=== PATIENT | female | born 1945 | race Hispanic/Latino ===

== ENCOUNTER 2023-09-08 14:43 | Inpatient (IN) | payer OTHER ==
[~2023-09-08] VITALS: Ht 162.6 cm; Wt 63.5 kg
[2023-09-08] MEDS ORDERED: ONDANSETRON 4MG INJ ONE (15:19)
[2023-09-08] MEDS ORDERED: MORPHINE 4 MG SYG ONE (15:20)
[2023-09-08] MEDS ORDERED: MORPHINE 2 MG SYG IVP ONE (15:30)
[2023-09-08] MEDS ORDERED: 0.9%NACL 1000ML 1,000 ML IV ONE (17:00)
[2023-09-08 17:29] LABS: BASOPHILS # (AUTO) 0.05 K/uL (0.00-0.20); BASOPHILS % (AUTO) 0.4 % (0.0-5.0); EOSINOPHILS # (AUTO) 0.05 K/uL (0.00-0.70); EOSINOPHILS % (AUTO) 0.4 % (0.0-8.0); HEMATOCRIT 30.9 % (36-48); IMMATURE GRANULOCYTE ABSOLUTE 0.05 K/uL (0-1); LYMPHOCYTES # (AUTO) 1.4 K/uL (1.0-4.8); LYMPHOCYTES % (AUTO) 11.1 % (21.0-51.0); MEAN CORPUSCULAR VOLUME 94.5 fL (79-99); MONOCYTES # (AUTO) 0.5 K/uL (0.1-1.0); MONOCYTES % (AUTO) 3.8 % (3.0-13.0); NEUTROPHILS # (AUTO) 10.8 K/uL (1.8-7.7); NEUTROPHILS % (AUTO) 83.9 % (40.0-77.0); PLATELET COUNT (AUTO) 175 K/uL (130-400); RED BLOOD CELL COUNT(AUTO) 3.27 MIL/uL (4.00-5.50); RED CELL DISTRIBUTION WIDTH 12.6 % (11.0-15.5); WHITE BLOOD COUNT (AUTO) 12.8 K/uL (4.8-10.8)
[2023-09-08 17:39] LABS: CREATININE 1.1 mg/dL (0.5-1.5); POTASSIUM 4.6 mmol/L (3.5-5.1)
[2023-09-08 17:43] LABS: INR 0.95 (0.85-1.15); PROTHROMBIN TIME 11.1 SEC (9.6-11.6)
[2023-09-08] MEDS: MORPHINE 2 MG SYG IVP PRN (17:43)
[2023-09-08 17:44] LABS: BILIRUBIN,TOTAL 0.6 mg/dL (0.2-1.0); PARTIAL THROMBOPLASTIN TIME 25.7 SEC (26.3-35.5); TOTAL PROTEIN, SERUM 6.9 g/dL (6.0-8.3)
[2023-09-08] MEDS ORDERED: ONDANSETRON 4MG INJ IVP ONE (18:00)
[2023-09-08] MEDS ORDERED: AMLO-257 PO (18:20)
[2023-09-08] MEDS ORDERED: AEC81 PO (18:20)
[2023-09-08] MEDS ORDERED: ATOR40TA69 PO (18:20)
[2023-09-08] MEDS ORDERED: [UNRECOGNIZED DRUG - CODE] PO (18:20)
[2023-09-08] MEDS ORDERED: INSU100V37 SQ (18:20)
[2023-09-08] MEDS ORDERED: LISI1TAB51 PO (18:20)
[2023-09-08] MEDS ORDERED: ERGO500093 PO (18:20)
[2023-09-08 18:59] LABS: APPEARANCE,URINE CLOUDY (CLEAR); BILIRUBIN,URINE NEGATIVE (NEGATIVE); COLOR,URINE LIGHT-YELLOW (YELLOW); GLUCOSE, URINE (UA) NEGATIVE (NEGATIVE); KETONES,URINE NEGATIVE (NEGATIVE); LEUKOCYTE ESTERASE ,URINE 500 Leu/uL (NEGATIVE); NITRATE,URINE NEGATIVE (NEGATIVE); OCCULT BLOOD,URINE NEGATIVE (NEGATIVE); PH,URINE 7.5 (5.0-8.0); PROTEIN,URINE NEGATIVE (NEGATIVE); UROBILINOGEN,URINE 0.2 mg/dL (0.2-1.0)
[2023-09-08 19:00] LABS: ADD UA MICROSCOPIC YES
[2023-09-08 19:15] LABS: BACTERIA,URINE FEW /HPF (None Seen); MUCUS,URINE RARE LPF (None Seen); OTHER CASTS, URINE 3 /LPF (None Seen); SQUAMOUS EPITHELIAL CELL,UR RARE /HPF (0-2); WBC,URINE 51-100 /HPF (0-1); YEAST,URINE BUDDING RARE /HPF (None Seen)
[2023-09-08 20:24] LABS: HEMOGLOBIN A1C 6.1 % (4.0-6.0)
[2023-09-08 23:00] VITALS: BP 123/52; PULSE 71; RESP 19
[2023-09-08 23:15] VITALS: O2SAT 98
[2023-09-08] MEDS: CEFTRIAXONE 1G VIAL IVPB SCH (23:40)
[2023-09-09] VITALS (8 sets, daily range): BP systolic 106–133; BP diastolic 46–56; PULSE 88–97; RESP 17–19; O2SAT 93–96
[2023-09-09] MEDS: MORPHINE 2 MG SYG IVP PRN ×3 (04:30→22:05)
[2023-09-09 06:00] LABS: BASOPHILS # (AUTO) 0.02 K/uL (0.00-0.20); BASOPHILS % (AUTO) 0.2 % (0.0-5.0); EOSINOPHILS # (AUTO) 0.01 K/uL (0.00-0.70); EOSINOPHILS % (AUTO) 0.1 % (0.0-8.0); HEMATOCRIT 27.2 % (36-48); IMMATURE GRANULOCYTE ABSOLUTE 0.03 K/uL (0-1); LYMPHOCYTES # (AUTO) 1.6 K/uL (1.0-4.8); LYMPHOCYTES % (AUTO) 15.6 % (21.0-51.0); MEAN CORPUSCULAR HEMOGLOBIN 33.2 pg (27.0-33.0); MEAN CORPUSCULAR HGB CONC 34.9 g/dL (32.0-36.0); MEAN CORPUSCULAR VOLUME 95.1 fL (79-99); MONOCYTES # (AUTO) 0.6 K/uL (0.1-1.0); MONOCYTES % (AUTO) 6.1 % (3.0-13.0); NEUTROPHILS # (AUTO) 7.7 K/uL (1.8-7.7); NEUTROPHILS % (AUTO) 77.7 % (40.0-77.0); PLATELET COUNT (AUTO) 163 K/uL (130-400); RED BLOOD CELL COUNT(AUTO) 2.86 MIL/uL (4.00-5.50); RED CELL DISTRIBUTION WIDTH 12.4 % (11.0-15.5); WHITE BLOOD COUNT (AUTO) 9.9 K/uL (4.8-10.8)
[2023-09-09 06:19] LABS: CREATININE 1.1 mg/dL (0.5-1.5); POTASSIUM 4.2 mmol/L (3.5-5.1)
[2023-09-09] MEDS: CEFTRIAXONE 1G VIAL IVPB SCH (22:05)
[2023-09-10] VITALS (27 sets, daily range): BP systolic 91–136; BP diastolic 41–67; PULSE 69–99; RESP 13–20; O2SAT 95–97
[2023-09-10 06:34] LABS: BASOPHILS # (AUTO) 0.04 K/uL (0.00-0.20); BASOPHILS % (AUTO) 0.5 % (0.0-5.0); EOSINOPHILS # (AUTO) 0.13 K/uL (0.00-0.70); EOSINOPHILS % (AUTO) 1.6 % (0.0-8.0); HEMATOCRIT 25.4 % (36-48); IMMATURE GRANULOCYTE ABSOLUTE 0.03 K/uL (0-1); LYMPHOCYTES # (AUTO) 1.9 K/uL (1.0-4.8); LYMPHOCYTES % (AUTO) 22.8 % (21.0-51.0); MEAN CORPUSCULAR HEMOGLOBIN 32.7 pg (27.0-33.0); MEAN CORPUSCULAR HGB CONC 34.3 g/dL (32.0-36.0); MEAN CORPUSCULAR VOLUME 95.5 fL (79-99); MONOCYTES # (AUTO) 0.7 K/uL (0.1-1.0); MONOCYTES % (AUTO) 8.5 % (3.0-13.0); NEUTROPHILS # (AUTO) 5.6 K/uL (1.8-7.7); NEUTROPHILS % (AUTO) 66.2 % (40.0-77.0); PLATELET COUNT (AUTO) 148 K/uL (130-400); RED BLOOD CELL COUNT(AUTO) 2.66 MIL/uL (4.00-5.50); WHITE BLOOD COUNT (AUTO) 8.4 K/uL (4.8-10.8)
[2023-09-10 06:51] LABS: ALBUMIN 2.6 g/dL (3.5-5.0); BILIRUBIN,TOTAL 0.6 mg/dL (0.2-1.0); CREATININE 1.2 mg/dL (0.5-1.5); POTASSIUM 3.9 mmol/L (3.5-5.1); TOTAL PROTEIN, SERUM 6.1 g/dL (6.0-8.3)
[2023-09-10] MEDS: ATORVASTATIN 40 MG TABLET PO SCH (08:49)
[2023-09-10] MEDS: AMLODIPINE 5 MG TAB PO SCH (09:00)
[2023-09-10] MEDS: MORPHINE 2 MG SYG IVP PRN (12:26)
[2023-09-10] MEDS ORDERED: SUCCINYLCHOLINE CHLORIDE 20 MG/ML 10 ML VIAL ONE (14:42)
[2023-09-10] MEDS ORDERED: MIDAZOLAM HCL 1 MG/ML 2ML VIAL ONE (14:43)
[2023-09-10] MEDS ORDERED: FENTANYL CITRATE PF 50 MCG/1 ML 2ML VIAL ONE ×2 (14:43→15:07)
[2023-09-10] MEDS ORDERED: ROCURONIUM 10MG/1ML SYR 10 MG/ML ML ONE ×2 (14:43→15:07)
[2023-09-10] MEDS ORDERED: PROPOFOL 10 MG/ML 20ML VIAL IV ONE (14:43)
[2023-09-10] MEDS ORDERED: PHENYLEPHRINE HCL 10 MG/ML 1ML VIAL IV ONE (15:09)
[2023-09-10] MEDS ORDERED: CEFAZOLIN SODIUM 2 GM VIAL IVPB ONE (15:25)
[2023-09-10] MEDS ORDERED: NEOSTIGMINE 5MG/5ML SYR IV ONE (16:09)
[2023-09-10] MEDS ORDERED: GLYCOPYRROLATE 1 MG/5 ML SYRINGE ONE (16:09)
[2023-09-10] MEDS: HYDROCODONE/ACETAMINOPHEN 5/325 MG TAB PO PRN (18:24)
[2023-09-10] MEDS: CEFAZOLIN SODIUM 2 GM VIAL IVPB SCH (22:24)
[2023-09-10] MEDS: CEFTRIAXONE 1G VIAL IVPB SCH (23:36)
[2023-09-11 04:00] VITALS: BP 127/65; PULSE 97; RESP 20
[2023-09-11] MEDS: HYDROCODONE/ACETAMINOPHEN 5/325 MG TAB PO PRN ×2 (04:36→15:32)
[2023-09-11 06:08] LABS: BASOPHILS # (AUTO) 0.02 K/uL (0.00-0.20); BASOPHILS % (AUTO) 0.2 % (0.0-5.0); EOSINOPHILS # (AUTO) 0.02 K/uL (0.00-0.70); EOSINOPHILS % (AUTO) 0.2 % (0.0-8.0); HEMATOCRIT 21.6 % (36-48); IMMATURE GRANULOCYTE ABSOLUTE 0.03 K/uL (0-1); LYMPHOCYTES # (AUTO) 1.4 K/uL (1.0-4.8); LYMPHOCYTES % (AUTO) 15.3 % (21.0-51.0); MEAN CORPUSCULAR HEMOGLOBIN 32.9 pg (27.0-33.0); MEAN CORPUSCULAR HGB CONC 34.3 g/dL (32.0-36.0); MONOCYTES # (AUTO) 0.6 K/uL (0.1-1.0); MONOCYTES % (AUTO) 6.2 % (3.0-13.0); NEUTROPHILS # (AUTO) 7.1 K/uL (1.8-7.7); NEUTROPHILS % (AUTO) 77.8 % (40.0-77.0); PLATELET COUNT (AUTO) 120 K/uL (130-400); RED BLOOD CELL COUNT(AUTO) 2.25 MIL/uL (4.00-5.50); RED CELL DISTRIBUTION WIDTH 12.8 % (11.0-15.5); WHITE BLOOD COUNT (AUTO) 9.2 K/uL (4.8-10.8)
[2023-09-11] MEDS: CEFAZOLIN SODIUM 2 GM VIAL IVPB SCH (06:11)
[2023-09-11 06:32] LABS: ALBUMIN 2.2 g/dL (3.5-5.0); BILIRUBIN,TOTAL 0.6 mg/dL (0.2-1.0); CREATININE 1.1 mg/dL (0.5-1.5); POTASSIUM 4.1 mmol/L (3.5-5.1); TOTAL PROTEIN, SERUM 5.4 g/dL (6.0-8.3)
[2023-09-11 08:00] VITALS: BP 118/56; PULSE 94; RESP 20; O2SAT 97
[2023-09-11] MEDS: AMLODIPINE 5 MG TAB PO SCH (08:08)
[2023-09-11] MEDS: ATORVASTATIN 40 MG TABLET PO SCH (08:08)
[2023-09-11 12:00] VITALS: BP 126/61; PULSE 114; RESP 20
[2023-09-11] MEDS ORDERED: ACETAMINOPHEN 325 MG TAB PO PRN ×2 (12:00)
[2023-09-11] MEDS: CHLORHEXIDINE GLUCONATE 15 ML MOUTHWASH MM SCH (12:44)
[2023-09-11 16:00] VITALS: BP 122/59; PULSE 96; RESP 20
[2023-09-11 20:00] VITALS: BP 132/65; PULSE 88; RESP 20; O2SAT 99
[2023-09-11] MEDS: MORPHINE 2 MG SYG IVP PRN (20:03)
[2023-09-11] MEDS: CEFTRIAXONE 1G VIAL IVPB SCH (23:09)
[2023-09-12] VITALS (10 sets, daily range): BP systolic 110–142; BP diastolic 42–86; PULSE 87–102; RESP 17–20; O2SAT 93–98
[2023-09-12] MEDS: CHLORHEXIDINE GLUCONATE 15 ML MOUTHWASH MM SCH (00:01)
[2023-09-12 05:12] LABS: BASOPHILS # (AUTO) 0.03 K/uL (0.00-0.20); BASOPHILS % (AUTO) 0.4 % (0.0-5.0); EOSINOPHILS # (AUTO) 0.13 K/uL (0.00-0.70); EOSINOPHILS % (AUTO) 1.6 % (0.0-8.0); IMMATURE GRANULOCYTE ABSOLUTE 0.05 K/uL (0-1); LYMPHOCYTES # (AUTO) 1.4 K/uL (1.0-4.8); LYMPHOCYTES % (AUTO) 16.6 % (21.0-51.0); MEAN CORPUSCULAR HEMOGLOBIN 33.7 pg (27.0-33.0); MEAN CORPUSCULAR HGB CONC 34.3 g/dL (32.0-36.0); MONOCYTES # (AUTO) 0.6 K/uL (0.1-1.0); MONOCYTES % (AUTO) 7.4 % (3.0-13.0); NEUTROPHILS # (AUTO) 6.1 K/uL (1.8-7.7); NEUTROPHILS % (AUTO) 73.4 % (40.0-77.0); PLATELET COUNT (AUTO) 133 K/uL (130-400); RED BLOOD CELL COUNT(AUTO) 2.05 MIL/uL (4.00-5.50); RED CELL DISTRIBUTION WIDTH 12.4 % (11.0-15.5); WHITE BLOOD COUNT (AUTO) 8.3 K/uL (4.8-10.8)
[2023-09-12 05:25] LABS: HEMATOCRIT 20.1 % (36-48)
[2023-09-12 05:39] LABS: ALBUMIN 2.1 g/dL (3.5-5.0); BILIRUBIN,TOTAL 0.6 mg/dL (0.2-1.0); CREATININE 1.1 mg/dL (0.5-1.5); POTASSIUM 3.7 mmol/L (3.5-5.1); TOTAL PROTEIN, SERUM 5.9 g/dL (6.0-8.3)
[2023-09-12 08:09] LABS: HEMATOCRIT 20.3 % (36-48)
[2023-09-12] MEDS: ATORVASTATIN 40 MG TABLET PO SCH (09:02)
[2023-09-12] MEDS: AMLODIPINE 5 MG TAB PO SCH (09:03)
[2023-09-12] MEDS: HYDROCODONE/ACETAMINOPHEN 5/325 MG TAB PO PRN ×2 (12:29→21:01)
[2023-09-12 15:10] LABS: HEMATOCRIT 23.7 % (36-48)
[2023-09-12] MEDS: CEFTRIAXONE 1G VIAL IVPB SCH (23:10)
[2023-09-13] VITALS (10 sets, daily range): BP systolic 112–153; BP diastolic 55–74; PULSE 82–109; RESP 18–20; O2SAT 94
[2023-09-13 05:45] LABS: BASOPHILS # (AUTO) 0.03 K/uL (0.00-0.20); BASOPHILS % (AUTO) 0.4 % (0.0-5.0); EOSINOPHILS # (AUTO) 0.27 K/uL (0.00-0.70); EOSINOPHILS % (AUTO) 3.3 % (0.0-8.0); IMMATURE GRANULOCYTE ABSOLUTE 0.03 K/uL (0-1); LYMPHOCYTES # (AUTO) 1.5 K/uL (1.0-4.8); LYMPHOCYTES % (AUTO) 17.7 % (21.0-51.0); MEAN CORPUSCULAR HEMOGLOBIN 31.4 pg (27.0-33.0); MEAN CORPUSCULAR HGB CONC 34.4 g/dL (32.0-36.0); MEAN CORPUSCULAR VOLUME 91.2 fL (79-99); MONOCYTES # (AUTO) 0.6 K/uL (0.1-1.0); MONOCYTES % (AUTO) 6.9 % (3.0-13.0); NEUTROPHILS # (AUTO) 5.9 K/uL (1.8-7.7); NEUTROPHILS % (AUTO) 71.3 % (40.0-77.0); PLATELET COUNT (AUTO) 148 K/uL (130-400); RED BLOOD CELL COUNT(AUTO) 2.74 MIL/uL (4.00-5.50); RED CELL DISTRIBUTION WIDTH 14.3 % (11.0-15.5); WHITE BLOOD COUNT (AUTO) 8.3 K/uL (4.8-10.8)
[2023-09-13 06:07] LABS: ALBUMIN 2.1 g/dL (3.5-5.0); BILIRUBIN,TOTAL 0.9 mg/dL (0.2-1.0); POTASSIUM 3.5 mmol/L (3.5-5.1); TOTAL PROTEIN, SERUM 5.9 g/dL (6.0-8.3)
[2023-09-13] MEDS: INSULIN HUMULIN R 100 UNIT/ML 3ML SQ SCH ×4 (06:39→21:04)
[2023-09-13] MEDS: HYDROCODONE/ACETAMINOPHEN 5/325 MG TAB PO PRN ×3 (07:15→16:40)
[2023-09-13] MEDS: AMLODIPINE 5 MG TAB PO SCH (09:58)
[2023-09-13] MEDS: ATORVASTATIN 40 MG TABLET PO SCH (09:59)
[2023-09-13] MEDS: ONDANSETRON 4MG INJ IVP PRN (13:01)
[2023-09-13] MEDS: CEFTRIAXONE 1G VIAL IVPB SCH (22:42)
[2023-09-13] MEDS: MORPHINE 4 MG SYG IVP PRN (22:46)
[2023-09-14] VITALS (8 sets, daily range): BP systolic 123–151; BP diastolic 57–72; PULSE 89–99; RESP 18–22; O2SAT 96
[2023-09-14] MEDS: HYDROCODONE/ACETAMINOPHEN 5/325 MG TAB PO PRN ×2 (03:09→18:46)
[2023-09-14] MEDS: INSULIN HUMULIN R 100 UNIT/ML 3ML SQ SCH ×4 (05:52→20:56)
[2023-09-14] MEDS: MORPHINE 4 MG SYG IVP PRN ×2 (06:44→22:24)
[2023-09-14] MEDS: ONDANSETRON 4MG INJ IVP PRN ×2 (07:20→22:24)
[2023-09-14] MEDS: AMLODIPINE 5 MG TAB PO SCH (09:07)
[2023-09-14] MEDS: ENOXAPARIN SODIUM 40 MG/0.4 ML SYRINGE SQ SCH (09:07)
[2023-09-14] MEDS: ATORVASTATIN 40 MG TABLET PO SCH (09:07)
[2023-09-14] MEDS: CEFTRIAXONE 1G VIAL IVPB SCH (22:24)
[2023-09-15 04:00] VITALS: BP 144/58; PULSE 105; RESP 19
[2023-09-15] MEDS: HYDROCODONE/ACETAMINOPHEN 5/325 MG TAB PO PRN ×2 (05:22→13:07)
[2023-09-15 05:50] LABS: BASOPHILS # (AUTO) 0.04 K/uL (0.00-0.20); BASOPHILS % (AUTO) 0.5 % (0.0-5.0); EOSINOPHILS # (AUTO) 0.43 K/uL (0.00-0.70); EOSINOPHILS % (AUTO) 5.9 % (0.0-8.0); HEMATOCRIT 24.5 % (36-48); IMMATURE GRANULOCYTE ABSOLUTE 0.04 K/uL (0-1); LYMPHOCYTES # (AUTO) 1.2 K/uL (1.0-4.8); LYMPHOCYTES % (AUTO) 16.3 % (21.0-51.0); MEAN CORPUSCULAR HEMOGLOBIN 31.9 pg (27.0-33.0); MEAN CORPUSCULAR HGB CONC 34.3 g/dL (32.0-36.0); MEAN CORPUSCULAR VOLUME 93.2 fL (79-99); MONOCYTES # (AUTO) 0.6 K/uL (0.1-1.0); NEUTROPHILS # (AUTO) 5.1 K/uL (1.8-7.7); NEUTROPHILS % (AUTO) 68.8 % (40.0-77.0); PLATELET COUNT (AUTO) 172 K/uL (130-400); RED BLOOD CELL COUNT(AUTO) 2.63 MIL/uL (4.00-5.50); RED CELL DISTRIBUTION WIDTH 14.1 % (11.0-15.5); WHITE BLOOD COUNT (AUTO) 7.4 K/uL (4.8-10.8)
[2023-09-15 06:05] LABS: MAGNESIUM 1.4 mg/dL (1.80-2.40); POTASSIUM 3.6 mmol/L (3.5-5.1)
[2023-09-15] MEDS: INSULIN HUMULIN R 100 UNIT/ML 3ML SQ SCH ×3 (06:29→16:30)
[2023-09-15 07:41] VITALS: O2SAT 96
[2023-09-15] MEDS: AMLODIPINE 5 MG TAB PO SCH (07:50)
[2023-09-15] MEDS: ATORVASTATIN 40 MG TABLET PO SCH (07:50)
[2023-09-15] MEDS: ENOXAPARIN SODIUM 40 MG/0.4 ML SYRINGE SQ SCH (07:51)
[2023-09-15 07:54] VITALS: BP 137/66; PULSE 93; RESP 18
[2023-09-15 12:00] VITALS: BP 111/56; PULSE 110; RESP 18
== END 2023-09-15 16:15 | DRG 481 ==
LOC: EDH 14:43 → EDHIP 16:57 → 3DH 21:53
PROVIDERS: ADMIT Internal Medicine; ATTEND Internal Medicine
PROC: 0QS604Z Reposition Right Upper Femur with Internal Fixation Device, Open Approach (ICD-10-PCS; principal; 2023-09-10 14:41)
DX: S72.141A Displaced intertrochanteric fracture of right femur, initial encounter for closed fracture (principal); D62 Acute posthemorrhagic anemia; N39.0 Urinary tract infection, site not specified; I25.10 Atherosclerotic heart disease of native coronary artery without angina pectoris; I10 Essential (primary) hypertension; E78.5 Hyperlipidemia, unspecified; B96.20 Unspecified Escherichia coli [E. coli] as the cause of diseases classified elsewhere; W01.0XXA Fall on same level from slipping, tripping and stumbling without subsequent striking against object, initial encounter; Y92.009 Unspecified place in unspecified non-institutional (private) residence as the place of occurrence of the external cause; E11.9 Type 2 diabetes mellitus without complications; S72.21XA Displaced subtrochanteric fracture of right femur, initial encounter for closed fracture; Y93.89 Activity, other specified; Y99.8 Other external cause status; Z95.1 Presence of aortocoronary bypass graft; Z79.84 Long term (current) use of oral hypoglycemic drugs
CPT/HCPCS: 36415; 36430; 70450; 73502; 80048; 80053; 81001; 82948; 83036; 83735; 85014; 85018; 85025; 85610; 85730; 86850; 86900; 86901; 86923; 87077; 87088; 87186; 93005; 96365; 96375; C1713; G0378; J0330; J0696; J1650; J1815; J2250; J2270; J2371; J2405; J2704; J2710; J3010; J3490; P9016; A4216; A4222; A4223; A4649; A6219; A6223; J0690